=== PATIENT | female | born 1965 | race Caucasian/White ===

== ENCOUNTER 2022-10-13 08:41 | Emergency (ER) | payer BC, SELFPAY ==
--- NOTE | 2022-10-13 08:55 | ED.GENADULT ---
HPI - General Adult General Chief complaint: Upper Respiratory Infection Stated complaint: sore throat,diarrhea Source: patient and RN notes reviewed History of Present Illness HPI narrative: 56 yo F presents to urgent care with complaints of sore throat, bilateral ear pain, TITUS, cough, diarrhea, congestion, and some SOB. Pt denies any chest pain or vomiting. Pt states she has been feeling ill since . Pt states her granddaughter tested + for strep throat 2 weeks ago and her daughter tested + 1 week ago. Pt has been taking Coricine and Afrin at home. Related Data Allergies Allergy/AdvReac Type Severity Reaction Status Date / Time lisinopril Allergy Unknown cough Verified 10/13/22 09:02 Review of Systems Review of Systems: Pertinent positives and pertinent negatives per HPI. FOR[facility]LY [facility] Past Medical History Medical History (Updated 10/13/22 @ 09:28 by Carolyn Degroot, SIX SIGMA BLACK TRAINER) BMI 36.0-36.9,adult Encounter for screening mammogram for malignant neoplasm of breast Family History Family History Father Orthostatic hypotension ESRF (end stage renal failure) Mother Hypertension Sibling No problems noted. Other No family history of cardiovascular disease Social History Social History Smoking status: Never smoker Second hand tobacco smoke exposure: Yes Alcohol intake: current Substance use: current Substance use type: marijuana Living arrangements: with family Occupation/Education: occupation Additional occupation/education comments: clerical Gender identity (if verbalized by the patient): Female Comments At the time of my signature, I reviewed and agree with the nursing past medical, surgical, social, and family history. There is no relevant family history pertinent to the patient complaint. Exam Narrative: GENERAL: This is a well-nourished, well-developed patient, in no apparent distress. HEAD: normocephalic, atraumatic. EYES: PERRL. Sclera clear/white. Vision is grossly intact. EARS: External ears normal, auditory canals clear and without drainage, TMs normal without perforation. Hearing grossly intact. NOSE: External nose normal with no obvious nasal discharge, nares without redness, no rhinorrhea. THROAT: Mucous membranes moist, posterior pharynx erythremic with mild exudate. NECK: Neck supple, non-tender with mild lymphadenopathy. No masses or thyromegaly. CARDIOVASCULAR: Regular rate and rhythm without murmurs, gallops, or rubs. RESPIRATORY: Clear to auscultation. Breath sounds equal bilaterally. No wheezes, rales, or rhonchi. GASTROINTESTINAL: Abdomen soft, non-tender, nondistended. Bowel sounds are active. No hepato-splenomegaly, or palpable masses. No guarding. SKIN: warm, intact with no suspicious lesions or rash, good texture and turgor. NEURO: awake, alert, and oriented to person, place and time. There were no obvious focal neurologic abnormalities. Course Course Level of Care: Express Care Visit Vital Signs Vital signs: Vital Signs Temperature 97.3 F L 10/13/22 09:05 Pulse Rate 99 10/13/22 09:05 Respiratory Rate 16 10/13/22 09:05 Blood Pressure 120/83 10/13/22 09:05 Pulse Oximetry 97 10/13/22 09:05 Temperature 97.3 F L 10/13/22 09:05 Pulse Rate 99 10/13/22 09:05 Respiratory Rate 16 10/13/22 09:05 Blood Pressure 120/83 10/13/22 09:05 Pulse Oximetry 97 10/13/22 09:05 Reviewed Medical Decision Making MDM Narrative Medical decision making narrative: After 24 hours on antibiotics throw tooth brush away and start using a new one. Increase your Vitamin C. Do not share drinks. Take Motrin alternating with Tylenol for pain and/or fever alternating every 4 hours. Increase fluids, avoid caffeine. Take a probiotic daily or eat a low sugar yogurt while taking the antibiotic. Follow up with Primary pro
[2022-10-13 09:05] VITALS: BP 120/83; PULSE 99; RESP 16; TEMP 36.3; O2SAT 97
== END 2022-10-13 09:34 | disposition home or self-care (01) ==
PROVIDERS: Emergency Provider Nurse Practitioner Family; PCP Family Medicine
DX: J02.0 Streptococcal pharyngitis (principal); F12.90 Cannabis use, unspecified, uncomplicated
CPT/HCPCS: 87880; 99213; G0463

== ENCOUNTER 2024-12-15 14:37 | Outpatient (CLI) | payer BC, SELFPAY ==
--- OUTSIDE RECORDS SUMMARY | 2024-12-15 14:43 | XMS_ITS | Clinical Summary ---
Author Organization [facility] [employer] Address [address] [place] [address] Care Team Providers Care Director Child Abuse Therapy Name Role Phone Alejandro Rita Romain JOSE-CORDAGE SALES REPRESENTATIVE Primary Care Provider + Source Comments [facility] [employer],non-owned Affiliates and Associated Physician Practices is amultiple site organization consisting of ambulatory clinics and hospital sitesin [place], [place], [place] and [place]. This disclosure is being madepursuant to the Care Everywhere program and may not contain all information available regarding this patient. Last updated 18.[facility] [employer] Allergies No known active allergies Medications * Be aware that medications may not be up to date on this document. Alwaysverify current medications with the patient. Ascorbic Acid (VITAMIN C PO) Activ e VITAMIN D PO Active NIACIN CR PO Active MEGARED OMEGA-3 KRILL OIL PO Active B Complex Vitamins (VITAMIN B COMPLEX PO) Active [id number] A-[id number]-[id number] PO Active Active Problems Problem Noted Date Diagnosed Date Class 2 severe obesity with serious comorbidity and body mass index (BMI) of 35.0 to 35.9 in adult 02/18/2020 Cervical lymphadenopathy 02/18/2020 Essential hypertension 02/18/2020 Immunizations Immunization Administration Dates Next Due TDAP (7yrs+) 02/18/2020 Family History Medical History Relation Name Comments Diabetes - Type 2 Brother 1 Hypertension Brother 1 Other Father hypotension Diabetes - Type 2 Mother Hypertension Mother Thyroid Disease Sister 2 Relation Name Status Comments Brother 1 Alive Brother 2 Alive Father Alive Mother Sister 1 Alive Sister 2 Alive Social History Tobacco Use Types Packs/Day Years Used Date Smoking Tobacco: Never Smokeless Tobacco: Never Alcohol Use Standard Drinks/Week Comments Yes 0 (1 standard drink = 0.6 oz pur e alcohol) Comments Unknown Sex and Gender Information Value Date Recorded Sex Assigned at Not on file Legal Sex Female 2:07 PM CDT Gender Identity Not on file Sexual Orientation Not on file Occupation Industry Job Start Date Job End Date Benjamin Not on file Not on file Not on file Last Filed Vital Signs Vital Sign Reading Time Taken Comments Blood Pressure 145/90 02/18/2020 8:40 AM CDT Pulse 83 02/18/2020 8:21 AM CDT Temperature 36.5 C (97.7 F) 02/18/2020 8:21 AM CDT Respiratory Rate - - Oxygen Saturation 97% 02/18/2020 8:21 AM CDT Inhaled Oxygen Concentration - - Weight 88.9 kg (196 lb) 02/18/2020 8:40 AM CDT Height 159 cm (5' 2.6 ) 02/18/2020 8:40 AM CDT Body Mass Index 35.17 02/18/2020 8:40 AM CDT Plan of Treatment Health Maintenance Due Date Last Done Comments COLON MONITORING 1965 COLONOSCOPY - COLON CA SCREENING 1965 CT COLONOGRAPHY - COLON CA SCREENING 1965 FIT - COLON CA SCREENING 1965 FLEX SIG - COLON CA SCREENING 1965 LIPID TESTING 1965 MAMMOGRAM 1965 HIV SCREENING 10/21/1979 HEPATITIS C SCREENING 10/16/1982 PNEUMOCOCCAL VACCINE 50+ (1 of 1 - PCV) 2014 ZOSTER VACCINE (1 of 2) 2014 SCREENING FOR DIABETES 02/18/2020 COLOGUARD (AGES 45-75) - COL ON CA SCREENING 03/08/2023 03/08/2020 Colorectal Cancer Screening 03/08/2023 COVID-19 VACCINE (1 - 2023-2 5 season) 2024 DEPRESSION SCREENING 07/22/2024 INFLUENZA VACCINE (Season Ended) 2025 DTAP/TDAP/TD VACCINES (2 - T d or Tdap) 02/17/2030 02/18/2020 Respiratory Syncytial Virus (RSV) Vaccine Pt: or over 60 yrs (1 - 1-dose 75+ series) 10/21/2039 HEPATITIS B VACCINE Aged Out No longe r eligible based on patient's age to complete this topic HIB VACCINE Aged Out No longer eligi ble based on patient's age to complete this topic HPV VACCINE Aged Out No longer eligi ble based on patient's age to complete this topic MENINGOCOCCAL (Group B) VACC INE SHARED DECISION-MAKING Aged Out No longer eligibl e based on patient's age to complete this topic MENINGOCOCCAL GROUPS A/C/Y/W VACCINE Aged Out No longer eligible b ased on patient's age to complete this topic Procedures Procedure Name Priority Date/Time Associated Diagnosis Comments COLOGUARD TEST Routine 03/08/2020 6:05 AM CDT Colon cancer screening from Last 3 Months or Most Recently Relevant to Health Maintenance Results * COLOGUARD TEST (03/08/2020 6:05 AM CDT) Cologuard Negative Not Applicable [facility] Comment: A negative result indicates a low likelihood that a colorectal cancer (CRC) or an advanced adenoma (adenomatous polyps with more advanced pre-malignant features) is present. The chance that a person with a negative Cologuard test has a colorectal cancer is less than 1 in 1500 (negative predictive value >99.9%) or has an advanced adenoma is less than 5.3% (negative predictive value 94.7%). These data are based on a prospective cross-sectional screening study of 10,000 individuals at average risk for colorectal cancer who were screened with both Cologuard and colonoscopy. (Mani King et al, N Engl J Med 2014;370(14):5853-7299) The normal value (reference range) for this assay is negative. COLOGUARD RE-SCREENING RECOMMENDATION: Periodic routine colorectal cancer screening is an important part of preventive healthcare for asymptomatic persons at average risk for colorectal cancer. Following a negative Cologuard result, the [place] Cancer Society and U.S. Multi-Society Task Force screening guidelines recommend a Cologuard re-screening interval of 3 years. References: [place] [employer] Society (ACS). Colorectal cancer prevention and early detection. [place], [place]: [place] [employer] Society; [updated 2015Nov 12]. https://www.cancer.org/cancer/nhonk-keaner-zbpsgy/lsuibpnof-vljhwksvs-ecbcams/ acs-recommendations.html. Accessed March 21, 2018; Jimmy DK, Romaine CR, Lin RowellK, Colorectal Cancer Screening: Recommendations for Physicians and Patients from the U.S. Multi-Society Task Force on Colorectal Cancer Screening, Am J Gastroenterology 2017; 112:1478-9772. TEST TYPE: Composite algorithmic analysis of stool DNA-biomarkers with hemoglobin immunoassay. Quantitative values of individual biomarkers are not reportable and are not associated with individual biomarker result reference ranges. PRECAUTIONS AND LIMITATIONS: Cologuard is intended for colorectal cancer screening of adults of either sex, 45 years or older, who are at average-risk for colorectal cancer (CRC). Cologuard has been approved for use by the U.S. FDA. Cologuard may produce a false negative or false positive result. A negative Cologuard test result does not guarantee the absence of CRC or advanced adenoma (pre-cancer). Patients with a negative Cologuard test result should be advised to continue participating in a colorectal cancer screening program. The screening interval for Cologuard is currently recommended at an interval of every 3 years by the [place] [employer] Society and U.S. Multi-Society Task Force. A false positive result occurs when Cologuard produces a positive result, even though a colonoscopy may not find colorectal cancer or precancerous polyps. The performance of Cologuard has been established in a cross sectional study (i.e., single point in time) of average-risk adults aged 50-84. Cologuard performance in patients ages 45 to 49 years was estimated by sub-group analysis of near-age groups. Cologuard performance data in a 10,000 patient pivotal study using colonoscopy as the reference method can be accessed at the following location: www.[employer]/results. Additional description of the Cologuard test process, warnings and precautions can be found at www.cologuardtest.com. Rx only. Stool specimen (specimen) STOOL SPECIMEN / Unknown 03/08/2020 6:05 AM CDT 03/09/2020 4:10 PM CDT Rita Allen PROJECT DESIGN ENGINEER-CORDAGE SALES REPRESENTATIVE LAB - CHEMISTRY ORDERABL ES Final Result [employer] [address] [place] [id number] [employer] [address] [place] [address] from Last 3 Months or Most Recently Relevant to Health Maintenance Insurance [id number] [place] [address] HEALTH CARE CARE Care Teams Director Child Abuse Therapy Relationship Specialty Start Date End Date Rita Allen, PROJECT DESIGN ENGINEER-CORDAGE SALES REPRESENTATIVE [address] [place] [id number] PCP - General 11/13/19
--- OUTSIDE RECORDS SUMMARY | 2024-12-15 14:43 | XMS_ITS | Clinical Summary ---
Author Organization [facility] Address [address] [place] [phone] Phone Care Team Providers Care Php Architect Name Role Phone Provider, None Primary Care Provider Unavailabl e Allergies No known active allergies Medications No known medications Active Problems No known active problems Social History Tobacco Use Types Packs/Day Years Used Date Smoking Tobacco: Never Smokeless Tobacco: Never Alcohol Use Standard Drinks/Week Comments Not Currently 0 (1 standard drink = 0.6 oz pur e alcohol) Comments Unknown Sex and Gender Information Value Date Recorded Sex Assigned at Not on file Legal Sex Female 9:46 AM EKG MANAGER Gender Identity Not on file Sexual Orientation Not on file Last Filed Vital Signs Vital Sign Reading Time Taken Comments Blood Pressure 130/80 06/27/2020 10:34 AM EKG MANAGER Pulse 87 06/27/2020 10:34 AM EKG MANAGER Temperature 37.2 C (98.9 F) 06/27/2020 10:34 AM EKG MANAGER Respiratory Rate 16 06/27/2020 10:34 AM EKG MANAGER Oxygen Saturation 98% 06/27/2020 10:34 AM EKG MANAGER Inhaled Oxygen Concentration - - Weight 83.9 kg (185 lb) 06/27/2020 10:34 AM EKG MANAGER Height - - Body Mass Index - - Plan of Treatment Health Maintenance Due Date Last Done Comments Hepatitis C Virus (HCV) Screening 1965 TdaP Immunization 1965 Hepatitis B Immunization (1 of 3 - 19+ 3-dose series) 10/21/1983 Colonoscopy 2009 Colorectal Cancer Screening 2009 Cologuard 2014 Immunochemical Fecal Occult Blood 2014 Pneumococcal Immunization (5 0+ years) (1 of 1 - PCV) 2014 Zoster Immunization (1 of 2) 2014 Influenza Immunization (#1) 2024 SARS-COV-2 Immunization (1 - 2024-25 season) 2024 Respiratory Syncytial Virus (RSV) Immunization (Adult) (1 - 1-dose 75+ series) 10/21/2039 Meningococcal Immunization (ACWY) Aged Out No longer eligible based on patient's age to complete this topic Rotavirus Immunization Aged Out No lo nger eligible based on patient's age to complete this topic Care Teams Php Architect Relationship Specialty Start Date End Date Provider, None [place] PCP - General 06/27/20
--- NOTE | 2024-12-15 14:44 | ECHO_ITS ---
Patient Info Name: Amparo Torres Age: 59 years : 1965 Gender: Female Ht: 64 in Wt: 250 lbs BSA: 2.32 m2 HR: 86 bpm BP: 168 / 105 mmHg Technical Quality: Fair Exam Date: 12/15/2024 2:50 PM Patient Status: O Admit Date: 12/15/2024 Exam Type: CA echo doppler color flow Complete two-dimensional, color flow and Doppler transthoracic echocardiogram is performed. Monorail Car Operator: Heidi Browning Attending Provider: Milly Conley Summary 1. Complete two-dimensional, color flow and Doppler transthoracic echocardiogram is performed. 2. Left ventricular chamber dimension is normal. 3. Left ventricular systolic function is normal, estimated at 60-65. 4. There is mild concentric increased left ventricular wall thickness. 5. The left ventricular diastolic function is grade I diastolic dysfunction. 6. E/e' 7 is not elevated. 7. There is mild aortic valve sclerosis. 8. There is trace aortic valve regurgitation. 9. No pulmonary hypertension, estimated pulmonary arterial systolic pressure is 29 mmHg. Left Ventricle Left ventricular chamber dimension is normal. Left ventricular systolic function is normal, estimated at 60-65. There is mild concentric increased left ventricular wall thickness. The left ventricular diastolic function is grade I diastolic dysfunction. E/e' 7 is not elevated. Right Ventricle Right ventricular chamber dimension is normal. Right ventricular systolic function is normal and with normal TAPSE 2.5 cm. Left Atria Left atrial chamber dimension is normal. Right Atria Right atrial chamber dimension is normal. Aortic Valve The aortic valve is trileaflet. There is mild aortic valve sclerosis. There is no aortic valve stenosis. There is trace aortic valve regurgitation. Pulmonic Valve There is no pulmonic regurgitation. Mitral Valve There is no mitral valve stenosis. There is no mitral valve regurgitation. Tricuspid Valve There is no tricuspid valve regurgitation. No pulmonary hypertension, estimated pulmonary arterial systolic pressure is 29 mmHg. Pericardium/Pleural There is no pericardial effusion. Inferior Vena Cava Normal inferior vena cava with >50% collapse upon inspiration consistent with normal right atrial pressure, 5 mmHg. Aorta The aortic root size at the sinus of Valsalva is normal. Left Ventricular Outflow Tract Name Value Normal LVOT 2D LVOT Diameter 1.9 cm LVOT Doppler LVOT Peak Velocity 121 cm/s LVOT Peak Gradient 6 mmHg LVOT Mean Gradient 4 mmHg LVOT VTI 25 cm LVOT VTI/AV VTI Ratio 0.8 LVOT Stroke Volume 70 ml LVOT CO 5.7 l/min LVOT CI 2.4 l/min/m2 Pulmonic Valve Name Value Normal RVOT Doppler RVOT Peak Velocity 81 cm/s RVOT Peak Gradient 3 mmHg PV Doppler PV Peak Velocity 96 cm/s PV Peak Gradient 4 mmHg Mitral Valve Name Value Normal MV Diastolic Function MV E Peak Velocity 72 cm/s MV A Peak Velocity 88 cm/s MV E/A 0.8 MV Decel Time (PW) 133 ms Tricuspid Valve Name Value Normal TV Regurgitation Doppler TR Peak Velocity 244 cm/s TR Peak Gradient 24 mmHg Estimated PAP/RSVP RA Pressure 5 mmHg <=5 PA Systolic Pressure 29 mmHg <36 RV Systolic Pressure 29 mmHg <36 TV Annular TDI TV Lateral Pamela s' Velocity 11.2 cm/s >=9.5 Aorta Name Value Normal Ascending Aorta Ao Root Diameter (MM) 3.5 cm Ao Root Diam Index (MM) 1.5 cm/m2 Aortic Valve Name Value Normal AV Doppler AV Peak Velocity 163 cm/s AV Peak Gradient 11 mmHg AV Mean Gradient 7 mmHg AV VTI 31 cm AV Area (Cont Eq VTI) 2.2 cm2 >=3.0 AV Area (Cont Eq Ebenezer) 2.1 cm2 AV DI (Ebenezer) 0.74 AV Regurgitation 2D LVOT Area 2.8 cm2 Ventricles Name Value Normal LV Dimensions 2D/MM IVS Diastolic Thickness (2D) 1.3 cm 0.6-1.0 IVS Diastole Thickness (MM) 1.0 cm 0.6-0.9 LVID Diastole (2D) 3.3 cm 3.8-5.2 LVID Diastole (MM) 4.6 cm 3.8-5.2 LVIW Diastolic Thickness (2D) 1.4 cm 0.6-0.9 LVIW Diastolic Thickness (MM) 0.9 cm 0.6-0.9 LVID Systole (2D) 2.3 cm 2.2-3.5 LVID Systole (MM) 2.7 cm 2.2-3.5 LVOT Diameter 1.9 cm LV Mass (2D Cubed) 148.90 g 67.00-162.00 LV Mass Index (2D Cubed) 64 g/m2 43-95 Relative Wall Thickness (2D) 0.82 <=0.42 LV Mass (MM Cubed) 152.08 g 67.00-162.00 LV Mass Index (MM Cubed) 65 g/m2 43-95 Relative Wall Thickness (MM) 0.41 LV Fractional Shortening/Ejection Fraction 2D/MM LV Fractional Shortening (2D) 33 % 27-45 LV Fractional Shortening (MM) 41 % 27-45 LV EF (MM Teichholz) 72 % LV EF (2D Teichholz) 62 % LV Diastolic Volume (4C MOD) 47 ml LV EF (4C MOD) 65 % LV Diastolic Volume (2C MOD) 50 ml LV EF (2C MOD) 64 % LV Diastolic Volume (BP MOD) 48 ml 46-106 LV Diastolic Volume Index (BP MOD) 21 ml/m2 29-61 LV Systolic Volume (BP MOD) 17 ml 14-42 LV Systolic Volume Index (BP MOD) 7 ml/m2 8-24 LV EF (BP MOD) 65 % 54-74 LV Diastolic Length (4C) 7.4 cm LV Systolic Length (4C) 6.1 cm LV Stroke Volume (4C MOD) 31 ml Atria Name Value Normal LA Dimensions LA Dimension (MM) 3.2 cm 2.7-3.8 LA Volume (4C A-L) 40 ml LA Volume (BP A-L) 45 ml RA Dimensions RA Systolic Major Carolina Length (4C) 4.7 cm 2.2-2.8 RA Area (4C) 11.2 cm2 <=18.0 Report Signatures
== END 2024-12-15 14:38 | disposition home or self-care (01) ==
PROVIDERS: PCP Family Medicine; Visit Provider Nurse Practitioner Family
DX: I11.9 Hypertensive heart disease without heart failure (principal); R00.2 Palpitations; I35.8 Other nonrheumatic aortic valve disorders
CPT/HCPCS: 93242; 93306